=== PATIENT | female | born 1990 | race Asian ===

== ENCOUNTER 2018-10-09 09:53 | Emergency (ER) | payer OTHER ==
[2018-10-09 10:00] VITALS: BMI 38.4
[2018-10-09] MEDS ORDERED: ACETAMINOPHEN 1000 MG/100 ML VIAL (NON FORMULARY) IVPB ONE (10:13)
[2018-10-09 10:42] LABS: BASO % 0.2 % (0-2.0); EOS % 0.2 % (0-4.5); HEMATOCRIT 34.5 % (32.4-45.2); HEMOGLOBIN 11.6 GM/dL (10.7-15.3); LYMPH % 12.3 % (8-40); MCH 29.3 pg (25.7-33.7); MCHC 33.5 g/dl (32.0-36.0); MEAN CELL VOLUME 87.5 fl (80-96); NEUT % 77.3 % (42.8-82.8); PLATELET COUNT 263 K/MM3 (134-434); RBC 3.94 M/mm3 (3.60-5.2); RDW 13.9 % (11.6-15.6); WHITE BLOOD COUNT 9.4 K/mm3 (4.0-10.0)
[2018-10-09] MEDS ORDERED: ACETAMINOPHEN INJECTION 100 ML IVPB ONE (10:47)
[2018-10-09 11:04] LABS: ALBUMIN 3.5 g/dl (3.4-5.0); BILIRUBIN,TOTAL 0.6 mg/dL (0.2-1); BLOOD UREA NITROGEN 12.9 mg/dL (7-18); POTASSIUM 3.9 mmol/L (3.5-5.1); TOT PROT 7.6 g/dl (6.4-8.2)
--- NOTE | 2018-10-09 11:17 | PDOC ---
History of Present Illness - General Chief Complaint: Pain Stated Complaint: ABD PAIN / DIARRHEA Time Seen by Provider: 10/09/18 10:08 History Source: Patient Exam Limitations: No Limitations - History of Present Illness Travel History: No Initial Comments: 10/09/18 10:15 28-year-old female presents the emergency room with complaints of diarrhea for the past 2 days associated now with generalized abdominal tenderness. Patient denies fever, chills, nausea, urinary complaints, history of GI disorders, recent travel recent illness. Patient does state menses came approximately 1 week earlier for her which she states is not her normal pattern. Patient states has been able to tolerate fluids by mouth and denies any recent change in diet Timing/Duration: reports: intermittent Quality: reports: mild, cramping Abdominal Pain Onset Location: reports: generalized abdomen Pain Radiation: reports: no radiation Activities at Onset: reports: none Aggravating Factors: improves with: None Alleviating Factors: improves with: None Past History - Travel Traveled outside of the country in the last 30 days: No Close contact w/someone who was outside of country & ill: No - Past Medical History Allergies/Adverse Reactions: Allergies Allergy/AdvReac Type Severity Reaction Status Date / Time No Known Allergies Allergy Unverified 10/09/18 09:56 Home Medications: Ambulatory Orders Aripiprazole [Abilify] 5 mg PO DAILY 10/09/18 Divalproex Sodium [Depakote ER] 1,000 mg PO DAILY 10/09/18 Ibuprofen [Motrin -] 600 mg PO TID PRN #21 tablet 10/09/18 Cardiac Disorders: Yes (WPW) COPD: No - Immunization History Immunization Up to Date: Yes - Suicide/Smoking/Psychosocial Hx Smoking History: Never smoked Hx Alcohol Use: No Drug/Substance Use Hx: No Patient Lives Alone: No Lives with/in: parents Review of Systems - Review of Systems Able to Perform ROS?: No Is the patient limited Norwegian proficient: No Constitutional: No: Symptoms Reported, Loss of Appetite, Weakness HEENTM: No: Symptoms Reported Respiratory: No: Symptoms reported Cardiac (ROS): No: Symptoms Reported ABD/GI: Yes: Diarrhea, Abdominal cramping Musculoskeletal: No: Symptoms Reported Integumentary: No: Symptoms Reported Neurological: No: Symptoms reported Hematologic/Lymphatic: No: Symptoms Reported *Physical Exam - Vital Signs Last Vital Signs Temp Pulse Resp BP Pulse Ox 99.0 F 98 H 18 113/80 98 10/09/18 09:56 10/09/18 09:56 10/09/18 09:56 10/09/18 09:56 10/09/18 09:56 - Physical Exam General Appearance: Yes: Nourished, Appropriately Dressed. No: Apparent Distress HEENT: negative: Pale Conjunctivae Neck: positive: Supple Respiratory/Chest: positive: Lungs Clear, Normal Breath Sounds. negative: Respiratory Distress, Accessory Muscle Use Cardiovascular: positive: Regular Rhythm, Regular Rate. negative: Murmur Gastrointestinal/Abdominal: positive: Soft, Tenderness (generalized . greater in the right lower quadrant) Musculoskeletal: negative: CVA Tenderness Extremity: positive: Normal Capillary Refill Integumentary: positive: Normal Color, Warm, Moist Neurologic: positive: Motor Strength 5/5 (ambulatory) ED Treatment Course - LABORATORY CBC & Chemistry Diagram: 10/09/18 10:24 10/09/18 10:11 - ADDITIONAL ORDERS Additional order review: Laboratory Results 10/09/18 10:24 Magnesium 2.5 H - Medications Given in the ED: ED Medications Discontinued Medications Generic Name Dose Route Start Last Admin Trade Name Watsonq PRN Reason Stop Dose Admin Acetaminophen 1,000 mg 10/09/18 10:13 10/09/18 10:54 Ofirmev Injection - IVPB 10/09/18 10:14 1,000 mg ONCE ONE Administration Medical Decision Making - Medical Decision Making 10/09/18 10:18 Chief complaint: Brown watery diarrhea for the past few days approximate 10 times in total. Patient denies change in appetite and able to eat/drink. Patient also complaining now of generalized abdominal cramping greater in the lower quadrants no other complaints Exam: Vital signs stable generalized abdominal tenderness right lower quadrant greater in the right lower quadrant Plan: Labs, urine, IV Tylenol we'll consider imaging once labs are reviewed 10/09/18 13:50 Laboratory Tests 10/09/18 10/09/18 10/09/18 10:11 10:24 10:24 WBC 9.4 Hgb 11.6 Hct 34.5 Neutrophils % 77.3 Magnesium Total Bilirubin 0.6 AST 14 L ALT 12 L Lipase 94 Urine Protein Urine Ketones Urine Nitrite Urine Bilirubin Urine Urobilinogen Ur Leukocyte Esterase Urine HCG, Qual Negative 10/09/18 10/09/18 10:24 10:24 WBC Hgb Hct Neutrophils % Magnesium 2.5 H Total Bilirubin AST ALT Lipase Urine Protein 1+ H Urine Ketones 1+ H Urine Nitrite Negative Urine Bilirubin 1+ H Urine Urobilinogen 0.2 Ur Leukocyte Esterase Negative Urine HCG, Qual 10/09/18 13:53 Pelvic ultrasound shows retroverted uterus with normal thickness of endometrial stripe. Left ovary measuring 4.2 x 2.5 multiple simple small cyst/follicles and normal vascular flow. Right ovary measuring 5.4 x 3.4 with multiple small simple cyst/follicles. There is a complex masslike density in the right ovary measuring 3 x 1.8 cm representing a partially ruptured hemorrhagic cyst. Normal vascular flow. There is small amount of free fluid in the cul-de-sac. Patient recommended to follow up in the first week of her next mental cycle for further evaluation. Patient states feeling better. Patient will be prescribed Motrin 600 and told to follow-up with [facility] at [facility]. *DC/Admit/Observation/Transfer Diagnosis at time of Disposition: Hemorrhagic cyst of right ovary - Discharge Dispostion Disposition: HOME Condition at time of disposition: Good - Prescriptions Prescriptions: Ibuprofen [Motrin -] 600 mg PO TID PRN #21 tablet PRN Reason: Pain - Referrals Referrals: Manish Mantilla [Primary Care Provider] - - Patient Instructions Printed Discharge Instructions: DI for Ovarian Cyst Additional Instructions: At this time both ovaries show small cyst/follicles. Right ovary with partially hemorrhagic ruptured cyst and recommending follow-up with her [employer]TE[employer]. If symptoms worsen including severe abdominal pain heavy menses feelings of nausea or dizziness, please return to the emergency room immediately - Post Discharge Activity
--- NOTE | 2018-10-09 11:29 | EKG ---
Test Reason : Blood Pressure : / mmHG Vent. Rate : 095 BPM Atrial Rate : 095 BPM P-R Int : 140 ms QRS Dur : 086 ms QT Int : 346 ms P-R-T Axes : 041 074 008 degrees QTc Int : 434 ms NORMAL SINUS RHYTHM NORMAL ECG NO PREVIOUS ECGS AVAILABLE Confirmed by SELIN COFFMAN MD ([id number]) on 10/09/2018 11:29:48 AM Referred By: Confirmed By:SELIN COFFMAN MD
[2018-10-09 12:19] LABS: PH,URINE 5.5 (5.0-8.0); URINE APPEARANCE Clear; URINE BILIRUBIN 1+ (NEGATIVE); URINE COLOR Yellow; URINE GLUCOSE (UA) Negative (NEGATIVE); URINE KETONE 1+ (NEGATIVE); URINE LEUK ESTERASE Negative (NEGATIVE); URINE NITRITE Negative (NEGATIVE); URINE PROTEIN 1+ (NEGATIVE); URINE UROBILINOGEN 0.2 mg/dL (0.2-1.0)
[2018-10-09] MEDS ORDERED: SODIUM CHLORIDE 1,000 ML IV STA (12:34)
[2018-10-09 14:22] VITALS: BP 108/67; PULSE 67; TEMP 98.7
== END 2018-10-09 14:41 | disposition home or self-care (01) ==
LOC: JER 09:53
PROC: 3E033NZ Introduction of Analgesics, Hypnotics, Sedatives into Peripheral Vein, Percutaneous Approach (ICD-10-PCS; principal; 2018-10-09)
PROC: 3E0337Z Introduction of Electrolytic and Water Balance Substance into Peripheral Vein, Percutaneous Approach (ICD-10-PCS; 2018-10-09)
DX: N83.291 Other ovarian cyst, right side (principal)
CPT/HCPCS: 36415; 76830-TC; 80053; 81003; 83605; 83690; 83735; 84703; 85025; 87086; 93005; 93010; 99283-25; J0131; J7030

== ENCOUNTER 2021-04-07 14:53 | Emergency (ER) | payer OTHER ==
[2021-04-07 15:00] VITALS: BP 140/85; PULSE 96; TEMP 98.5; BMI 41.1
[2021-04-07] MEDS ORDERED: ACETAMINOPHEN 500 MG TABLET (FP) PO ONE (16:33)
[2021-04-07] MEDS ORDERED: ACETAMINOPHEN 500 MG TABLET (FP) ONE (16:45)
== END 2021-04-07 18:40 | disposition home or self-care (01) ==
LOC: JER 14:53
DX: M54.2 Cervicalgia (principal); M25.512 Pain in left shoulder; M25.552 Pain in left hip; V43.52XA Car driver injured in collision with other type car in traffic accident, initial encounter
CPT/HCPCS: 70450-TC; 73030-TC-LT-FY; 99284-25

== ENCOUNTER 2022-04-15 16:54 | Emergency (ER) | payer OTHER ==
[2022-04-15 17:06] VITALS: RESP 18; BMI 41.5
[2022-04-15 19:08] LABS: CREATININE 0.8 mg/dL (0.55-1.3)
[2022-04-15 19:29] VITALS: BP 132/84; PULSE 89; TEMP 99.7
== END 2022-04-15 21:35 | disposition home or self-care (01) ==
LOC: JERFT 16:54 → JER 16:54
DX: J02.0 Streptococcal pharyngitis (principal)
CPT/HCPCS: 36415; 71275-TC; 82565; 84703; 99285-25; Q9967

== ENCOUNTER 2023-01-24 20:58 | Emergency (ER) | payer OTHER ==
[2023-01-24 21:02] VITALS: BP 112/85; PULSE 98; RESP 20; TEMP 98.2; BMI 39.9
== END 2023-01-24 23:34 | disposition home or self-care (01) ==
LOC: JER 20:58
DX: R51.9 Headache, unspecified (principal); R05.9 Cough, unspecified; R09.81 Nasal congestion; R53.83 Other fatigue; J32.9 Chronic sinusitis, unspecified; J40 Bronchitis, not specified as acute or chronic; Z20.822 Contact with and (suspected) exposure to COVID-19
CPT/HCPCS: 0241U-QW; 71046-TC-FY; 84703; 99284-25